=== PATIENT | male | born 1970 | race Caucasian/White ===

== ENCOUNTER 2018-01-07 12:35 | Emergency (ER) | payer SELFPAY | END 2018-01-07 13:27 | disposition home or self-care (01) | LOC: NAV ERS 12:35 | DX: L02.415 Cutaneous abscess of right lower limb (principal); L02.414 Cutaneous abscess of left upper limb; F17.210 Nicotine dependence, cigarettes, uncomplicated; G89.29 Other chronic pain; F41.9 Anxiety disorder, unspecified; F32.9 Major depressive disorder, single episode, unspecified | CPT/HCPCS: 87070; 87077; 87186; 87205; 99283 ==

== ENCOUNTER 2018-01-11 13:23 | Emergency (ER) | payer SELFPAY ==
[2018-01-11 14:25] LABS: #Basophils 0.1 thou/uL (0.0-0.2); #Eosinphils 0.4 thou/uL (0.0-0.7); #Lymphocytes 2.2 thou/uL (1.20-3.40); #Monocytes 0.6 thou/uL (0.11-0.59); #Neutrophils 5.2 thou/uL (1.40-6.50); %Basophils 1.2 % (0.0-1.0); %Eosinophils 4.4 % (0.0-10.0); %Neutrophils 61.4 % (42.0-75.0); Hemoglobin 14.7 g/dL (14.0-18.0); Mean Corpuscular HGB CONC 34.4 g/dL (32.0-36.0); Mean Corpuscular Hemoglobin 31.8 pg (27.0-31.0); Mean Corpuscular Volume 92.4 fL (78.0-98.0); Mean Platelet Volume 5.8 fL (7.4-10.4); Platelet Count 290 thou/uL (130-400); RBC Distribution Width 11.1 % (11.5-14.5); Red Blood Cell (RBC) Count 4.62 mill/uL (4.70-6.10); White Blood Cell (WBC) Count 8.5 thou/uL (4.8-10.8)
[2018-01-11 14:32] LABS: ALT (SGPT) 27 U/L (8-55); AST (SGOT) 18 U/L (5-34); Alkaline Phosphatase 61 U/L (40-150); Anion Gap 11 mmol/L (10-20); BUN (Urea Nitrogen) 13 mg/dL (8.9-20.6); Bilirubin, Total 0.4 mg/dL (0.2-1.2); Calc. Creatinine Clearance 0 mL/min (70-130); Calcium 9.1 mg/dL (7.8-10.44); Carbon Dioxide 23 mmol/L (22-29); Chloride 109 mmol/L (98-107); Estimated GFR-MDRD Greater than 90; Globulin 2.6 g/dL (2.4-3.5); Glucose 87 mg/dL (70-105); Potassium 3.9 mmol/L (3.5-5.1); Protein, Total 6.6 g/dL (6.0-8.3); Sodium 139 mmol/L (136-145)
--- NOTE | 2018-01-11 14:40 | RAD ---
LEFT LEG 2 VIEWS: HISTORY: Abscess. COMPARISON: None. FINDINGS: On the medial soft tissues is what appears to be a focal skin defect. Circumferential swelling of th e distal tibia fibula. Along the lateral distal margin of the tibia there appears to be some radiopaque debris, though it co uld be artifactual. IMPRESSION: 1. Focal medial mid tibia fibula soft tissue defect. 2. Extensive soft tissue swelling. 3. Although may be debris on the outside of the patient, there appears to be an opacity projecting o waqas the lateral malleolus. Ankle radiographs may be beneficial. 4. Evidence of old deltoid ligament injury. POS: [facility]
[2018-01-11] MEDS ORDERED: Cipro 250 MG TAB ONE (14:56)
[2018-01-11] MEDS ORDERED: Bacitracin Zinc 1 Packet ONE (15:13)
== END 2018-01-11 15:18 | disposition home or self-care (01) ==
LOC: NAV ERS 13:23
DX: L03.116 Cellulitis of left lower limb (principal); F41.9 Anxiety disorder, unspecified; F32.9 Major depressive disorder, single episode, unspecified; F17.210 Nicotine dependence, cigarettes, uncomplicated; Z79.899 Other long term (current) drug therapy
CPT/HCPCS: 80053; 83605; 85025; 85652; 87040

== ENCOUNTER 2019-09-28 14:27 | Emergency (ER) | payer SELFPAY ==
--- NOTE | 2019-09-28 15:15 | CT ---
EXAM: CT Lumbar Spine WO Con PROVIDED CLINICAL HISTORY: Back pain COMPARISON: None FINDINGS: 5 nonrib-bearing lumbar-type vertebral bodies are present. Lumbar alignment appears normal. Vertebral body heights appear preserved. No evidence for fracture or other acute osseous abnormality. Lumbar spine degenerative changes are seen. There is disc osteophyte complex and left foraminal region at L3 -4 with potential for chronic impingement on the exiting left L3 nerve root. 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 Chronic nondisplaced right L5 pars defect. IMPRESSION: No evidence for an acute osseous abnormality.
== END 2019-09-28 15:43 | disposition home or self-care (01) ==
LOC: NAV ERS 14:27
DX: S39.012A Strain of muscle, fascia and tendon of lower back, initial encounter (principal); F41.9 Anxiety disorder, unspecified; F32.9 Major depressive disorder, single episode, unspecified; F17.210 Nicotine dependence, cigarettes, uncomplicated; X50.1XXA Overexertion from prolonged static or awkward postures, initial encounter
CPT/HCPCS: 72131